=== PATIENT | male | born 1995 | race Caucasian/White ===

== ENCOUNTER 2016-11-20 04:19 | Emergency (ER) | payer OTHER ==
[2016-11-20] MEDS ORDERED: LIDOCAINE 1%/EPINEPHRINE INJ 20 ML VIAL INJ ONE (04:43)
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
[2016-11-20] MEDS ORDERED: NORMAL SALINE 1000 ML 1,000 ML IV ONE (05:28)
[2016-11-20 05:34] LABS: BLOOD UREA NITROGEN 10 mg/dL (7-20); CALCIUM 9.2 mg/dL (8.4-10.2); CARBON DIOXIDE 25 mmol/L (22-30); CHLORIDE 109 mmol/L (98-107); CREATININE RESULT 0.76 mg/dL (0.52-1.25); GLUCOSE 98 mg/dL (75-110); POTASSIUM 4.6 mmol/L (3.6-5.0)
[2016-11-20 05:35] LABS: ANION GAP 15 (5-19)
[2016-11-20 07:28] VITALS: BP 114/64
== END 2016-11-20 07:28 | disposition home or self-care (01) ==
LOC: ER 04:19
PROC: 0CQ0XZZ Repair Upper Lip, External Approach (ICD-10-PCS; principal; 2016-11-20)
DX: R55 Syncope and collapse (principal); Y04.8XXA Assault by other bodily force, initial encounter; S01.81XA Laceration without foreign body of other part of head, initial encounter; S09.90XA Unspecified injury of head, initial encounter; R22.0 Localized swelling, mass and lump, head
CPT/HCPCS: 99284; 36415; 80048; 70450; 72125; 12013; L0120; J3490; J7030